=== PATIENT | male | born 1985 | race Caucasian/White ===

== ENCOUNTER 2019-01-19 16:25 | Inpatient (IN) | payer OTHER ==
[2019-01-19] MEDS ORDERED: Labetalol HCl 100 MG/20 ML VIAL SLOW IVP PRN (18:12)
[2019-01-19] MEDS ORDERED: hydrALAZINE 20 MG/ML VIAL SLOW IVP PRN (18:12)
[2019-01-19 19:03] LABS: #Lymphocytes 0.5 thou/uL (1.20-3.40); #Monocytes 0.4 thou/uL (0.11-0.59); #Neutrophils 14.7 thou/uL (1.40-6.50); %Lymphocytes 3.3 % (21.0-51.0); %Monocytes 2.8 % (0.0-10.0); %Neutrophils 93.9 % (42.0-75.0); Hemoglobin 14.4 g/dL (14.0-18.0); Mean Corpuscular HGB CONC 33.8 g/dL (32.0-36.0); Mean Corpuscular Hemoglobin 31.6 pg (27.0-31.0); Mean Corpuscular Volume 93.4 fL (78.0-98.0); Mean Platelet Volume 7.9 fL (7.4-10.4); Platelet Count 242 thou/uL (130-400); Red Blood Cell (RBC) Count 4.58 mill/uL (4.70-6.10); White Blood Cell (WBC) Count 15.7 thou/uL (4.8-10.8)
[2019-01-19 19:08] LABS: PTT 24.9 SEC (22.9-36.1); Prothrombin Time 13.4 SEC (12.0-14.7)
[2019-01-19 19:20] LABS: Anion Gap 14 mmol/L (10-20); BUN (Urea Nitrogen) 12 mg/dL (8.9-20.6); Calc. Creatinine Clearance 0 mL/min (70-130); Calcium 9.3 mg/dL (7.8-10.44); Carbon Dioxide 21 mmol/L (22-29); Chloride 108 mmol/L (98-107); Estimated GFR-MDRD Greater than 90; Glucose 135 mg/dL (70-105); Potassium 3.7 mmol/L (3.5-5.1); Sodium 139 mmol/L (136-145)
[2019-01-19] MEDS ORDERED: Aminocaproic Acid 5 GM in Sodium Chloride 0.9% 250 ML 250 ML IV SCH (19:30)
[2019-01-19] MEDS ORDERED: niCARdipine 25 MG in Sodium Chloride 0.9% 250 ML 250 ML IVPB SCH (19:30)
[2019-01-19] MEDS ORDERED: Fentanyl 100 MCG/2 ML VIAL ONE ×2 (19:46→21:05)
--- NOTE | 2019-01-19 20:11 | PDOC.FPRHP ---
- History of Present Illness Chief Complaint: headache History of Present Illness: CONSULT NOTE: 33 yo gentleman presents as a transfer from [facility] for a SAH. 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 He was admitted to [facility]. We were consulted for medical management. He has already recevied fentanyl and amicar, and was started on a cardene drip here. Additional hx obtained from who states she has talked to around 1215 on lunch break and he felt fine, and then at 1230 he called her back and was gasping for air and in severe pain from a sudden headache; reports that she thinks he then passed out on the phone and the called EMS to go to her house where he works from home. He was transferred to [facility] and found to have the findings above, then transferred here. He was complaining of a diffuse headache in the room with some nausea currently. ED Course: Fentanyl, cardene, amicar, tylenol - Allergies/Adverse Reactions Allergies Allergy/AdvReac Type Severity Reaction Status Date / Time No Known Allergies Allergy Unverified 01/19/19 19:01 - History PMHx: Migraine requiring ER meds x1 in [place] PSHx: none FHx: grandfather-cva, prostate cancer, PSP Social: denies smoking, alcohol, drug use - Review of Systems General: denies: fever/chills, weight/appetite/sleep changes, night sweats ENT: denies: nasal congestion, rhinorrhea Respiratory: denies: cough, congestion, shortness of breath Cardiovascular: denies: chest pain, palpitation, edema Gastrointestinal: reports: nausea, diarrhea, abdominal pain. denies: vomiting Skin: denies: rashes, lesions Musculoskeletal: denies: pain, tenderness Neurological: reports: syncope. denies: numbness Psychological: denies: anxiety, depression - Vital signs BP: 123/66 HR: 106 RR: 22 Tmax:98.3F Pox: 98% on RA Wt: 68kg - Physical Exam Constitutional: other (GCS 14, resting with eyes closed, but responsive to commands) HEENT: normocephalic and atraumatic, PERRLA, conjunctiva clear, no scleral icterus, grossly normal hearing, normal nasal mucosa, MMM, oropharynx clear Neck: supple, trachea midline, no JVD, no thyromegaly Chest: no-tender to palpation, no lesions Heart: normal S1/S2, no murmurs/rubs/gallops, pulses present, no edema, other ( mildy tachycardic) Lungs: CTAB, no respiratory distress, good air movement, no wheezing, no retractions Abdomen: soft, non-tender (hypoactive bowel sounds), no masses/distention Musculoskeletal: normal structure, normal tone, ROM grossly normal Neurological: no focal deficit, CN II-XII intact, normal sensation Skin: no rash/lesions, good turgor, capillary refill <2 seconds, no jaundice Heme/Lymphatic: no unusual bruising or bleeding, no purpura, no petechia, no LAD FMR H&P: Results - Labs Result Diagrams: 01/19/19 18:55 01/19/19 18:55 Lab results: WBC 15.7 thou/uL (4.8-10.8) H 01/19/19 18:55 Hgb 14.4 g/dL (14.0-18.0) 01/19/19 18:55 Hct 42.8 % (42.0-52.0) 01/19/19 18:55 MCV 93.4 fL (78.0-98.0) 01/19/19 18:55 Plt Count 242 thou/uL (130-400) 01/19/19 18:55 Neutrophils % 93.9 % (42.0-75.0) H 01/19/19 18:55 Sodium 139 mmol/L (136-145) 01/19/19 18:55 Potassium 3.7 mmol/L (3.5-5.1) 01/19/19 18:55 Chloride 108 mmol/L (98-107) H 01/19/19 18:55 Carbon Dioxide 21 mmol/L (22-29) L 01/19/19 18:55 BUN 12 mg/dL (8.9-20.6) 01/19/19 18:55 Creatinine 0.74 mg/dL (0.7-1.3) 01/19/19 18:55 Glucose 135 mg/dL (70-105) H 01/19/19 18:55 Calcium 9.3 mg/dL (7.8-10.44) 01/19/19 18:55 - Radiology Interpretation CT scan - head Status: report reviewed by me (right MCA bifurcation wide-neck 5mm aneurysm with small daughter aneurysm at its dome, gen ruptured and producing the moderate subarachnoid hemorrhage seen on the noncontrast C earlier on karolina same date. Moderate subarachnoid hemorrhage centered in the suprasellar cistern and extending peripherally.) FMR H&P: A/P - Problem List (1) Subarachnoid hemorrhage Current Visit: Yes Status: Acute Code(s): I60.9 - NONTRAUMATIC SUBARACHNOID HEMORRHAGE, UNSPECIFIED (2) See aneurysm Current Visit: Yes Status: Acute Code(s): I67.1 - CEREBRAL ANEURYSM, NONRUPTURED - Plan 33 yo gentleman with new onset headache, n/v admitted for a SAH 2/2 see aneurysm at the right MCA bifurcation. #Subarachnoid hemorrhage- Pt has already been admitted to [facility] and we were consulted by neurosurgery for medical management of bp. He has been admitted to ICU and has already been started on a cardine drip for bp management. WIll keep bp's controlled at <140 systolic Will control pain with morphine, tylenol prn HLandon Bahena MD, PGY-3 FMR H&P: Upper Level - Plan Date/Time: 01/19/192008 I, [], have evaluated this patient and agree with findings/plan as outlined by manager internship resident. Pertinent changes/additions are listed here.
[2019-01-19] MEDS: niMODipine 30 MG CAP PO SCH (22:36)
[2019-01-19] MEDS: Famotidine/PF 20 mg/2ml Vial SLOW IVP SCH (22:37)
[2019-01-19] MEDS: Acetaminophen 1,000 MG in Premix Bag 1 BAG IVPB PRN (22:38)
[2019-01-19] MEDS: Aminocaproic Acid 5 GM in Sodium Chloride 0.9% 250 ML 250 ML IV SCH ×2 (22:41→22:56)
[2019-01-19] MEDS: Sodium Chloride 0.9% 1,000 ML IV SCH (23:00)
[2019-01-19] MEDS: Ondansetron PF 4 MG/2 ML Vial IVP PRN (23:24)
[2019-01-19 23:33] VITALS: BMI 21.5
[2019-01-20] MEDS: Morphine 2 MG/ML SYRINGE SLOW IVP PRN ×3 (00:11→21:15)
[2019-01-20] MEDS: niCARdipine 50 MG in Sodium Chloride 0.9% 250 ML 230 ML IVPB SCH ×2 (01:09→09:48)
[2019-01-20] MEDS: niMODipine 30 MG CAP PO SCH ×6 (01:14→21:13)
--- NOTE | 2019-01-20 02:18 | CON ---
DATE OF CONSULTATION: HISTORY OF PRESENT ILLNESS: The patient is a 33-year-old male, who is otherwise healthy, who presented to [facility] following an acute onset of thunderclap headache just prior to arrival. The patient reports this was associated with an episode of syncope, and nausea and vomiting at that time. EMS was called, brought the patient to the emergency department for further evaluation. On arrival, CT head was done, which showed diffuse subarachnoid hemorrhage. CTA was also ordered, which was notable for a right-sided MCA aneurysm at the bifurcation just approximately 5 mm, wide neck in appearance and associated with a small daughter sac. I discussed the case with Dr. Naranjo and he recommended transfer to [facility] for further management and coiling capabilities. The patient was started on Amicar as well as blood pressure control. He presented to the emergency room at [facility], where his neurologic exam has remained stable. I presented shortly after that to the bedside for further evaluation and management. PAST MEDICAL HISTORY: The patient is otherwise healthy. Denies any prior medical problems. PAST SURGICAL HISTORY: Denies any prior surgeries. The patient does not smoke, drink, or use any drugs. SOCIAL HISTORY: He is . ALLERGIES: NO KNOWN DRUG ALLERGIES. REVIEW OF SYSTEMS: Per HPI. PHYSICAL EXAMINATION: VITAL SIGNS: BP is 130/66, respiration rate is 20. The patient is 100% on room air, pulse is 100. Pain scale currently 9/10. HEENT: Head; normocephalic and atraumatic. Eyes; pupils are small, equal, sluggish reactivity. ENT; oral mucosa is pink, intact, and moist. He has normal voice. NECK: Slight nuchal rigidity is noted. RESPIRATORY: Symmetric chest expansion. No evidence of dyspnea. CARDIOVASCULAR: Regular rate and rhythm. MUSCULOSKELETAL: Free active range of motion. No focal motor weakness is noted. NEUROLOGIC: The patient is drowsy, but otherwise awakens easily to voice. He is oriented to person, place, and time. He has normal fluent speech. No focal neurologic deficits are appreciated. ASSESSMENT AND PLAN: This is a 33-year-old otherwise healthy male, who was found to have acute subarachnoid hemorrhage with a right 5 mm MCA bifurcation aneurysm. He was transferred to [facility] for further management. We will plan to admit to the ICU and monitor closely with q.1 neuro checks. Head of the bed should be elevated to 30 degrees. We will continue current Amicar as well as start the patient on Nimotop and continue Cardene drip with systolic blood pressure goal of less than 140. I have discussed this case with Dr. Naranjo and he also discussed with for the possibility of possible coiling of this aneurysm. Depending on this, we will coordinate further plan. I have also consulted ICU diesel dinkey engineer as well as the Hospitalist Service for assistance in management of this patient. Job ID: [id number]
[2019-01-20] MEDS: Aminocaproic Acid 5 GM in Sodium Chloride 0.9% 250 ML 250 ML IV SCH ×2 (03:55→09:48)
[2019-01-20] MEDS: Acetaminophen 1,000 MG in Premix Bag 1 BAG IVPB PRN (05:34)
--- NOTE | 2019-01-20 06:46 | CT ---
CT HEAD NONCONTRAST: Date: 01/20/19 INDICATION: Subarachnoid hemorrhage, follow-up. No prior comparisons are currently available. FINDINGS: There is bilateral subarachnoid hemorrhage, more pronounced on the right, with evidence of intraventr icular extension, bilaterally, resulting in mild ventriculomegaly. Subarachnoid hemorrhage involves t he bilateral sylvian fissures, the right frontoparietal sulci, and insinuating along the midline stru ctures. There is a focal rounded hyperdensity adjacent to the interpeduncular cistern, approximately 9 mm. IMPRESSION: Diffuse bilateral subarachnoid hemorrhage with intraventricular hemorrhagic extension producing mild ventriculomegaly. POS: BRIDGER
--- NOTE | 2019-01-20 07:33 | CON ---
DATE OF CONSULTATION: 01/20/2019 REASON FOR CONSULTATION: Subarachnoid hemorrhage. HISTORY OF PRESENT ILLNESS: The patient is a 33-year-old male, who presented to an outside ER with thunderclap headache. He had a non-contrast CT performed that showed diffuse subarachnoid hemorrhage. Subsequent to that, he had a CT angiogram performed, which suggested a right MCA bifurcation region aneurysm. He was transferred to [facility] for further evaluation and more definitive management. He has been admitted in the ICU overnight, he has been stable. This morning, he is sleeping, reports headache. I discussed with his father as well as the patient, his diagnosis, his imaging, and the plan of procedure today, which will be that of conventional angiography with potential for endovascular coiling of any identified aneurysm or aneurysms. I reviewed with him in detail the risks of the procedure, which certainly include re-rupture of the aneurysm as well as thromboembolic event. I answered all of their questions, and they provided informed consent. The plan will be to bring him to the laborer [facility] later this morning or early afternoon for the above-mentioned procedure. Job ID: [id number]
[2019-01-20] MEDS ORDERED: Heparin 10,000 UNITS/1 ML VIAL ONE (08:42)
[2019-01-20] MEDS: Famotidine/PF 20 mg/2ml Vial SLOW IVP SCH ×2 (08:48→21:14)
[2019-01-20] MEDS: Ondansetron PF 4 MG/2 ML Vial IVP PRN ×2 (08:52→21:18)
--- NOTE | 2019-01-20 08:54 | PDOC.FM ---
- Subjective Subjective: Ian was resting in bed this morning. Family member present noted that many people have come in the room this morning. Patient did not express any complaints to me. Plan for procedure today at noon. - Objective Vital Signs & Weight: Vital Signs (12 hours) Temp Pulse BP Pulse Ox 01/20/19 04:00 97.9 F 01/20/19 01:00 97.7 F 01/20/19 00:17 97 01/19/19 23:28 97 141/65 H 01/19/19 22:21 98.3 F 01/19/19 21:00 98.3 F Weight Weight 70 kg Most Recent Monitor Data Heart Rate from ECG 74 NIBP 122/65 NIBP BP-Mean 84 Respiration from ECG 19 SpO2 98 I&O: 01/19/19 01/20/19 01/21/19 06:59 06:59 06:59 Intake Total 1841 Output Total 925 Balance 916 Result Diagrams: 01/19/19 18:55 01/19/19 18:55 Phys Exam - Physical Examination Constitutional: NAD Respiratory: no wheezing, clear to auscultation bilateral Cardiovascular: RRR, no significant murmur Gastrointestinal: soft, non-tender Musculoskeletal: no edema Psychiatric: normal affect Skin: normal turgor Dx/Plan (1) Rayo aneurysm Code(s): I67.1 - CEREBRAL ANEURYSM, NONRUPTURED Status: Acute (2) Subarachnoid hemorrhage Code(s): I60.9 - NONTRAUMATIC SUBARACHNOID HEMORRHAGE, UNSPECIFIED Status: Acute - Plan Plan: 33 yo gentleman with new onset headache, n/v admitted for a SAH 2/2 rayo aneurysm at the right MCA bifurcation. #Subarachnoid hemorrhage -Pt admitted to neurosurgery and we are consulted for medical management of bp. -Continue cardene drip, currently at 7, with goal BP's <140 systolic -Will control pain with morphine, tylenol prn - neurosurgery has plan for procedure today, will continue to follow Addendum - Attending - Attending Attestation Date/Time: 01/20/19 1033 I personally evaluated the patient and discussed the management with Dr. Forrest I agree with the History, Examination, Assessment and Plan documented above with any addition or exceptions noted below - Patient c/o continued TURNER. Afebrile VSS. A/P: 1) Subarachnoid hemorrhage secondary to Rayo aneurysm - plans as per neurosurgery for intervention; continue cardene for BP.
--- NOTE | 2019-01-20 08:54 | CON ---
DATE OF CONSULTATION: HISTORY OF PRESENT ILLNESS: Ian English is a 33-year-old gentleman who presented with severe headache. Presented to [facility] where non CT head showed a subarachnoid hemorrhage. Was transferred here for ongoing evaluation. Dr. Torres, the neurosurgeon saw him yesterday and imaging studies shows he has a right MCA aneurysm. Father at the bedside who states that on a constant diet. Did not smoke any tobacco, but apparently I see in the history he rarely smokes some marijuana from time to time. No history of any alcohol abuse. PAST MEDICAL HISTORY: Unremarkable for any major medical problems. No history of diabetes or hypertension. CHRONIC MEDICATIONS: None. PAST SURGICAL HISTORY: None. SOCIAL HISTORY: He apparently designs . REVIEW OF SYSTEMS: Otherwise negative. PHYSICAL EXAMINATION: GENERAL: He is awake, alert, responsive, appropriate except for headache. Denies any other discomfort. VITAL SIGNS: Blood pressure 122/65, pulse 74, saturations are 98% on room air, respiratory rate 19. CHEST: No wheezing or crackles. CARDIAC: Normal S1, S2. No gallop. ABDOMEN: No masses. DIAGNOSTIC STUDIES: CT brain shows diffuse subarachnoid hemorrhage. LABORATORY DATA: Otherwise unremarkable. White count 08018. Chemistry profile unremarkable. Blood sugar 130. IMPRESSION: Subarachnoid hemorrhage secondary to aneurysm. PLAN: The patient to go for intervention today. Pulmonary will follow while in the ICU. Consultation note, 70 minutes, 50% direct patient care. Job ID: [id number]
--- NOTE | 2019-01-20 10:15 | PRG ---
DATE OF SERVICE: 01/20/2019 The patient was seen and examined. I agree with Sade Cain's evaluation on 01/19/2019. The patient is a 33-year-old man, otherwise healthy with spontaneous thunderclap headache yesterday. Currently, he has his eyes closed, but does arouse and interact and seems oriented. He complains of headache. CT scan revealed subarachnoid hemorrhage diffusely with predominance in the right sylvian fissure. CT angiogram done at [facility] suggested a sausage like right MCA bifurcation aneurysm. IMPRESSION AND PLAN: Aneurysmal subarachnoid hemorrhage. The definitive anatomy of the right middle cerebral artery aneurysm remains to be defined. I have discussed the case with Dr. Torres, who plans an angiography today with possible coiling if anatomically favorable. I discussed with the patient and his father. Job ID: [id number]
[2019-01-20] MEDS ORDERED: Fentanyl 100 MCG/2 ML VIAL ONE (12:47)
[2019-01-20] MEDS ORDERED: Ondansetron PF 4 MG/2 ML Vial ONE (13:08)
[2019-01-20] MEDS ORDERED: Lidocaine 2% PF 5 ML VIAL ONE (13:08)
[2019-01-20] MEDS ORDERED: PROPOFOL 200 MG/20 ML VIAL ONE (13:08)
[2019-01-20] MEDS ORDERED: Glycopyrrolate 0.2 MG/ML 5 ML SYRINGE ONE (13:08)
[2019-01-20] MEDS ORDERED: Rocuronium Bromide 10 MG/ML (10ML VIAL) ONE (13:08)
[2019-01-20] MEDS ORDERED: Dexamethasone 20 MG/5 ML VIAL ONE (13:08)
[2019-01-20] MEDS: Sodium Chloride 0.9% 1,000 ML IV SCH ×2 (17:06→22:44)
[2019-01-21] MEDS: niMODipine 30 MG CAP PO SCH ×6 (01:39→21:47)
[2019-01-21] MEDS: Morphine 2 MG/ML SYRINGE SLOW IVP PRN (01:41)
[2019-01-21] MEDS: Ondansetron PF 4 MG/2 ML Vial IVP PRN ×4 (02:58→17:27)
--- NOTE | 2019-01-21 06:32 | PDOC.FM ---
- Subjective Subjective: Ian reported he was in pain this morning and just received morphine. He has been urinating well. Has not had BM since prior to hospitalization and is not passing gas. - Objective Vital Signs & Weight: Vital Signs (12 hours) Temp Pulse Ox 01/21/19 04:00 98.4 F 01/21/19 00:00 98.9 F 01/20/19 20:00 98.8 F 98 Weight Weight 70 kg Most Recent Monitor Data Heart Rate from ECG 60 NIBP 124/74 NIBP BP-Mean 90 Respiration from ECG 10 SpO2 98 I&O: 01/19/19 01/20/19 01/21/19 06:59 06:59 06:59 Intake Total 1841 4109 Output Total 925 4130 Balance 916 -21 Result Diagrams: 01/19/19 18:55 01/19/19 18:55 Phys Exam - Physical Examination Constitutional: NAD Respiratory: clear to auscultation bilateral Cardiovascular: RRR, no significant murmur Gastrointestinal: soft, no distention, positive bowel sounds Musculoskeletal: no edema Psychiatric: normal affect Skin: normal turgor, cap refill <2 seconds Dx/Plan (1) Rayo aneurysm Code(s): I67.1 - CEREBRAL ANEURYSM, NONRUPTURED Status: Acute (2) Subarachnoid hemorrhage Code(s): I60.9 - NONTRAUMATIC SUBARACHNOID HEMORRHAGE, UNSPECIFIED Status: Acute - Plan Plan: 33 yo gentleman with new onset headache, n/v admitted for a SAH 2/2 rayo aneurysm at the right MCA bifurcation. #Subarachnoid hemorrhage s/p coiling POD #1 -Pt admitted to neurosurgery and we are consulted for medical management -Cardene drip stopped 01/20. On nimodipine. Goal BP's <140 systolic -Pain control with morphine, norco prn -add prn stool softeners prn, discussed with patient Addendum - Attending - Attending Attestation Date/Time: 01/21/19 1033 I personally evaluated the patient and discussed the management with Dr. Forrest I agree with the History, Examination, Assessment and Plan documented above with any addition or exceptions noted below - Patietn c/o TURNER. Tolerating clears. Afebrile VSS. A/P: 1) SA hemorrhage secondary to Rayo aneurysm- s/p coiling- plans as per neurosurgery.
--- NOTE | 2019-01-21 07:57 | PRG ---
DATE OF SERVICE: 01/21/2019 SUBJECTIVE: Ian English this morning, is awake, alert, and responsive. Still got a headache, still nauseated. OBJECTIVE: VITAL SIGNS: Temperature 97, blood pressure 130/78, saturations . CHEST: No wheezing or crackles. CARDIAC: Normal S1, S2. No gallop. ABDOMEN: No masses. ASSESSMENT: Status post intraventricular hemorrhage secondary to aneurysm status post coiling. PLAN: The patient appears to be improved and stable. Pain relief, supportive care. We will follow while in the ICU. Job ID: [id number]
[2019-01-21] MEDS: HYDROcodone/Acetaminophen 5/325 mg Tablet PO PRN ×4 (08:13→20:31)
[2019-01-21] MEDS: Famotidine/PF 20 mg/2ml Vial SLOW IVP SCH (08:14)
[2019-01-21] MEDS: Sodium Chloride 0.9% 1,000 ML IV SCH ×2 (10:21→20:33)
--- NOTE | 2019-01-21 15:46 | PRG ---
DATE OF SERVICE: 01/21/2019 SUBJECTIVE: The patient is alert and appropriate. He is having nausea at the moment. He has been working with Physical Therapy. He underwent successful coiling of his MCA aneurysm yesterday. IMPRESSION AND PLAN: We will stop his Amicar and allow his blood pressure to rise to a range between 120 and 180. We will continue with aggressive IV hydration and check a basic metabolic panel tomorrow. We will continue with ICU care for now. Then, I did discuss with the patient and his [id number], the likelihood of prolonged hospital stay to survey for complications of subarachnoid hemorrhage. Job ID: [id number]
[2019-01-21] MEDS: Scopolamine 1.5 mg/72 hour Patch TOP SCH (17:26)
[2019-01-21] MEDS: Famotidine 20 MG TAB PO SCH (20:28)
[2019-01-22] MEDS: Ondansetron PF 4 MG/2 ML Vial IVP PRN ×4 (00:07→21:12)
[2019-01-22] MEDS: niMODipine 30 MG CAP PO SCH ×6 (01:13→20:31)
[2019-01-22] MEDS: HYDROcodone/Acetaminophen 5/325 mg Tablet PO PRN ×4 (02:38→21:10)
[2019-01-22 05:06] LABS: Anion Gap 11 mmol/L (10-20); BUN (Urea Nitrogen) 11 mg/dL (8.9-20.6); Calc. Creatinine Clearance 155 mL/min (70-130); Calcium 8.5 mg/dL (7.8-10.44); Carbon Dioxide 23 mmol/L (22-29); Chloride 108 mmol/L (98-107); Estimated GFR-MDRD Greater than 90; Glucose 97 mg/dL (70-105); Potassium 3.6 mmol/L (3.5-5.1); Sodium 138 mmol/L (136-145)
--- NOTE | 2019-01-22 06:02 | PRG ---
DATE OF SERVICE: SUBJECTIVE: He is better this morning, less headache. OBJECTIVE: VITAL SIGNS: Sats are 98% on room air, pulse 53, blood pressure 102/71, respiratory rate 18. CHEST: Decreased breath sounds. No wheezing. CARDIAC: Normal S1, S2. No gallops. ABDOMEN: No masses. LABORATORY DATA: Lytes are normal. IMPRESSION: Status post subarachnoid hemorrhage secondary to aneurysm, status post coiling. Headache, improved. PLAN: Disposition; as per Neurosurgery. We will follow while in the ICU. Job ID: [id number]
--- NOTE | 2019-01-22 06:22 | PDOC.FM ---
- Subjective Subjective: Patient was resting in bed. reports patient just got done with PT and feels bad with headache now. - Objective Vital Signs & Weight: Vital Signs (12 hours) Temp Pulse Ox 01/22/19 04:00 98.2 F 01/22/19 00:00 98.6 F 01/21/19 20:00 98.8 F 99 Weight Weight 70 kg Most Recent Monitor Data Heart Rate from ECG 47 NIBP 106/57 NIBP BP-Mean 73 Respiration from ECG 14 SpO2 98 I&O: 01/20/19 01/21/19 01/22/19 06:59 06:59 06:59 Intake Total 1841 4109 3685 Output Total 925 4130 3100 Balance 916 -21 585 Result Diagrams: 01/19/19 18:55 01/22/19 04:16 Phys Exam - Physical Examination sleeping in bed no respiratory distress Cardiovascular: RRR Gastrointestinal: soft Musculoskeletal: no edema Neurological: moves all 4 limbs Skin: normal turgor Dx/Plan (1) See aneurysm Code(s): I67.1 - CEREBRAL ANEURYSM, NONRUPTURED Status: Acute (2) Subarachnoid hemorrhage Code(s): I60.9 - NONTRAUMATIC SUBARACHNOID HEMORRHAGE, UNSPECIFIED Status: Acute - Plan Plan: 33 yo gentleman with new onset headache, n/v admitted for a SAH, MCA aneurysm. #Subarachnoid hemorrhage s/p coiling of MCA aneurysm POD #2 -Pt admitted to neurosurgery and we are consulted for medical management -Cardene drip stopped 01/20. On nimodipine, though has been held for BP systolic [id number]. Per neuro, goal BP's 120-180 systolic -Pain control with morphine, norco prn -stool softeners prn Addendum - Attending - Attending Attestation Date/Time: 01/22/19 1027 I personally evaluated the patient and discussed the management with Dr. Forrest I agree with the History, Examination, Assessment and Plan documented above with any addition or exceptions noted below - Patient resting. Just finished PT and now has TURNER. Afebrile VSS. A/P: 1) SA bleed secondary to See aneurysm s/p coiling- continue current treatment as per neurosurgery
[2019-01-22] MEDS: Famotidine 20 MG TAB PO SCH ×2 (09:07→20:31)
--- NOTE | 2019-01-22 09:35 | PRG ---
DATE OF SERVICE: 01/22/2019 SUBJECTIVE: The patient is a 33-year-old male found to have subarachnoid hemorrhage with right MCA bifurcation aneurysm, who is postop day #2, status post coiling. He remains in the ICU. His headaches and nausea are improving. He is tolerating a regular diet. He has been up, ambulating short distance back and forth to the bathroom. All of his hypertensive medications other than Nimotop have been discontinued. His blood pressure has been running with systolic around 120. He was unable to get 1 episode with Nimotop secondary to systolic blood pressure less than 120. His BMP; sodium looks normal this morning. Fluids remain running 75 an hour. OBJECTIVE: GENERAL: On exam, the patient is awake, alert, in no acute distress. HEENT: Pupils are equal and reactive. His extraocular movements are intact. NEUROLOGIC: No focal neurologic deficits are appreciated. PLAN: We will continue to monitor closely in the ICU as he is high risk for vasospasm. I anticipate transfer to the floor soon. Job ID: [id number]
[2019-01-22] MEDS: Morphine 2 MG/ML SYRINGE SLOW IVP PRN (10:05)
[2019-01-22] MEDS: Sodium Chloride 0.9% 1,000 ML IV SCH (11:08)
[2019-01-23] MEDS: Sodium Chloride 0.9% 1,000 ML IV SCH ×2 (00:38→12:24)
[2019-01-23] MEDS: niMODipine 30 MG CAP PO SCH ×5 (01:30→17:32)
--- NOTE | 2019-01-23 06:41 | PDOC.FM ---
- Subjective Subjective: Patient was sleeping comfortably in bed. He denied having any complaints or needs this morning. - Objective Vital Signs & Weight: Vital Signs (12 hours) Temp Pulse Ox 01/22/19 20:00 98.4 F 98 Weight Weight 72.7 kg Most Recent Monitor Data Heart Rate from ECG 43 NIBP 111/67 NIBP BP-Mean 81 Respiration from ECG 10 SpO2 99 I&O: 01/21/19 01/22/19 01/23/19 06:59 06:59 06:59 Intake Total 4109 3685 2016 Output Total 4131 3100 4250 Balance -21 072 -6544 Result Diagrams: 01/19/19 18:55 01/22/19 04:16 Phys Exam - Physical Examination Constitutional: NAD Respiratory: no wheezing, clear to auscultation bilateral Cardiovascular: RRR, no significant murmur Gastrointestinal: soft, non-tender Musculoskeletal: no edema, pulses present Psychiatric: normal affect Skin: normal turgor Dx/Plan (1) See aneurysm Code(s): I67.1 - CEREBRAL ANEURYSM, NONRUPTURED Status: Acute (2) Subarachnoid hemorrhage Code(s): I60.9 - NONTRAUMATIC SUBARACHNOID HEMORRHAGE, UNSPECIFIED Status: Acute - Plan Plan: 33 yo gentleman with new onset headache, n/v admitted for a SAH, MCA aneurysm. #Subarachnoid hemorrhage s/p coiling of MCA aneurysm POD #3 -Pt admitted to neurosurgery and we are consulted for medical management -Cardene drip stopped 01/20. On nimodipine, though has been held for BP systolic [id number]. Per neuro, goal BP's 120-180 systolic -Pain control with morphine, norco prn -stool softeners prn Addendum - Attending - Attending Attestation Date/Time: 01/23/19 2773 I personally evaluated the patient and discussed the management with Dr. Forrest. I agree with the History, Examination, Assessment and Plan documented above with any addition or exceptions noted below. Patient overall stable. Primary mgmt by NSGY. We are monitoring BP. Below goal currently and CCB being held. Will see if we can decrease dose as any amount of CCB would be an improvement and help prevent vasospasm.
[2019-01-23] MEDS: Famotidine 20 MG TAB PO SCH ×2 (07:47→21:31)
[2019-01-23] MEDS: HYDROcodone/Acetaminophen 5/325 mg Tablet PO PRN ×4 (07:47→21:32)
[2019-01-23] MEDS: Ondansetron PF 4 MG/2 ML Vial IVP PRN (07:48)
[2019-01-23 09:01] LABS: Anion Gap 13 mmol/L (10-20); BUN (Urea Nitrogen) 8 mg/dL (8.9-20.6); Calc. Creatinine Clearance 159 mL/min (70-130); Calcium 8.7 mg/dL (7.8-10.44); Carbon Dioxide 21 mmol/L (22-29); Chloride 109 mmol/L (98-107); Estimated GFR-MDRD Greater than 90; Glucose 91 mg/dL (70-105); Potassium 3.7 mmol/L (3.5-5.1); Sodium 139 mmol/L (136-145)
--- NOTE | 2019-01-23 09:27 | PRG ---
DATE OF SERVICE: 01/23/2019 SUBJECTIVE: The patient is a 33-year-old male three days status post coiling of a right MCA bifurcation aneurysm. He has been monitored closely in the ICU and has remained neurologically intact. He has had some issues with headache and nausea, but this appeared to be improving in time. He has remained on IV fluids and has had no issues with his electrolytes. OBJECTIVE: GENERAL: On exam this morning, the patient is sitting up in the chair. He is awake, alert, in no acute distress. NEUROLOGIC: He has free active range of motion of all extremities. No focal motor weakness. His pupils are equal and reactive. His extraocular movements are intact. ASSESSMENT AND PLAN: We will plan to transition the patient to the floor today. The patient's systolic blood pressure goal should remain 120 to 180 systolic. We will continue his IV fluids. We will continue to mobilize and work on pain control and nausea control. Job ID: [id number]
[2019-01-24] MEDS: HYDROcodone/Acetaminophen 5/325 mg Tablet PO PRN ×5 (03:34→20:49)
[2019-01-24] MEDS: Sodium Chloride 0.9% 1,000 ML IV SCH ×2 (03:35→17:50)
[2019-01-24] MEDS: niMODipine 30 MG CAP PO SCH ×6 (04:34→17:44)
--- NOTE | 2019-01-24 06:59 | PDOC.FM ---
- Subjective Subjective: Ian was resting well in bed. No acute events overnight. - Objective Vital Signs & Weight: Vital Signs (12 hours) Temp Pulse Resp BP Pulse Ox 01/24/19 04:00 98.7 F 48 L 16 114/75 100 01/24/19 00:00 98.5 F 55 L 16 105/67 97 01/23/19 20:25 99 01/23/19 20:00 98.7 F 58 L 16 115/77 99 Weight Weight 72.7 kg Most Recent Monitor Data Heart Rate from ECG 59 NIBP 116/73 NIBP BP-Mean 87 Respiration from ECG 14 SpO2 100 I&O: 01/22/19 01/23/19 01/24/19 06:59 06:59 06:59 Intake Total 3686 2016 2236 Output Total 310 7013 1200 Balance 585 -4253 1037 Result Diagrams: 01/19/19 18:55 01/23/19 08:23 Phys Exam - Physical Examination Constitutional: NAD Respiratory: clear to auscultation bilateral Cardiovascular: RRR, no significant murmur Gastrointestinal: no distention, positive bowel sounds Musculoskeletal: no edema Skin: normal turgor Dx/Plan (1) See aneurysm Code(s): I67.1 - CEREBRAL ANEURYSM, NONRUPTURED Status: Acute (2) Subarachnoid hemorrhage Code(s): I60.9 - NONTRAUMATIC SUBARACHNOID HEMORRHAGE, UNSPECIFIED Status: Acute - Plan Plan: 33 yo gentleman with new onset headache, n/v admitted for a SAH, MCA aneurysm. #Subarachnoid hemorrhage s/p coiling of MCA aneurysm POD #4 -Pt admitted to neurosurgery and we are consulted for medical management -Cardene drip stopped 01/20. On nimodipine, though has been held for BP systolic [id number]. Per neuro, goal BP's 120-180 systolic -Pain control with morphine, norco prn -stool softeners prn Addendum - Attending - Attending Attestation Date/Time: 01/24/19 0713 I personally evaluated the patient and discussed the management with Dr. Forrest. I agree with the History, Examination, Assessment and Plan documented above with any addition or exceptions noted below. Patient admitted by NSGY for SAH. Doing well overall. Continue BP mgmt with CCB. At goal currently. Dispo per primary team.
[2019-01-24 08:13] LABS: Anion Gap 10 mmol/L (10-20); BUN (Urea Nitrogen) 8 mg/dL (8.9-20.6); Calc. Creatinine Clearance 157 mL/min (70-130); Calcium 8.4 mg/dL (7.8-10.44); Carbon Dioxide 26 mmol/L (22-29); Chloride 109 mmol/L (98-107); Estimated GFR-MDRD Greater than 90; Glucose 91 mg/dL (70-105); Potassium 3.6 mmol/L (3.5-5.1); Sodium 141 mmol/L (136-145)
[2019-01-24] MEDS: Famotidine 20 MG TAB PO SCH ×2 (08:35→20:50)
--- NOTE | 2019-01-24 09:24 | PRG ---
DATE OF SERVICE: 01/24/2019 The patient is a 33-year-old male, status post coiling of right MCA aneurysm. Yesterday, he was transferred from the ICU to the Stroke Unit. Since that time , he reports he has been doing well and only has mild intermittent headaches, that are well controlled with [place]. He has been tolerating a regular diet, and has been up ambulating with assistance. Exam AOX, non focal We will continue to monitor closely on the Stroke floor. He continues to receive Nimotop, as his blood pressure tolerates and we will continue his IV fluids. Will check CTA and non contrast CT of the brain tomorrow to reassess. Job ID: [id number] MTDD
[2019-01-24] MEDS: Ondansetron PF 4 MG/2 ML Vial IVP PRN ×2 (10:12→20:48)
--- NOTE | 2019-01-24 13:02 | PRG ---
DATE OF SERVICE: 01/24/2019 The patient was seen and examined. I agree with Sade Cain's evaluation. He is doing reasonably well without focal deficit. He is alert and interactive, although he prefers his eyes closed due to significant headache. His oral intake has been reasonable. His sodium remains normal. We will continue with IV fluids. Tomorrow, we will get a CT and CT angiogram to survey for hydrocephalus with vasospasm and depending on the results of these, we will decide on ongoing IV fluid management as well as disposition planning for possible discharge later in the week. I discussed in detail with the patient and his mother. Job ID: [id number]
[2019-01-24] MEDS: Docusate 100 MG CAP PO PRN (14:38)
[2019-01-24] MEDS: Scopolamine 1.5 mg/72 hour Patch TOP SCH (17:44)
[2019-01-24] MEDS: Polyethylene Glycol 3350 17 GM Packet PO PRN (20:50)
[2019-01-25] MEDS: niMODipine 30 MG CAP PO SCH ×7 (00:03→22:23)
[2019-01-25] MEDS: HYDROcodone/Acetaminophen 5/325 mg Tablet PO PRN ×5 (05:40→22:22)
[2019-01-25] MEDS: Sodium Chloride 0.9% 1,000 ML IV SCH (05:43)
--- NOTE | 2019-01-25 08:12 | PDOC.FM ---
- Subjective Subjective: Pt reports headache this AM, given [place] about an hour before exam. Denies CP, SOB, nausea/vomiting. - Objective Vital Signs & Weight: Vital Signs (12 hours) Temp Pulse Resp BP Pulse Ox 01/25/19 07:43 98.2 F 57 L 16 123/71 97 01/25/19 03:59 98.6 F 54 L 16 129/74 98 01/25/19 00:00 98.3 F 53 L 16 116/74 97 Weight Weight 71.486 kg Most Recent Monitor Data Heart Rate from ECG 59 NIBP 116/73 NIBP BP-Mean 87 Respiration from ECG 14 SpO2 100 I&O: 01/24/19 01/25/19 01/26/19 06:59 06:59 06:59 Intake Total 2237 2400 Output Total 1200 1040 Balance 1037 1360 Result Diagrams: 01/19/19 18:55 01/25/19 08:21 Phys Exam - Physical Examination Constitutional: NAD HEENT: PERRLA, moist MMs Neck: no nodes, supple Respiratory: no wheezing, clear to auscultation bilateral Cardiovascular: RRR, no significant murmur Gastrointestinal: soft, non-tender Musculoskeletal: no edema, pulses present Neurological: non-focal, moves all 4 limbs strength 5/5 BL upper and lower extremities Psychiatric: normal affect Skin: no rash, normal turgor Dx/Plan (1) See aneurysm Code(s): I67.1 - CEREBRAL ANEURYSM, NONRUPTURED Status: Acute (2) Subarachnoid hemorrhage Code(s): I60.9 - NONTRAUMATIC SUBARACHNOID HEMORRHAGE, UNSPECIFIED Status: Acute - Plan Plan: 33 yo gentleman with new onset headache, n/v admitted for a SAH, MCA aneurysm. #Subarachnoid hemorrhage s/p coiling of MCA aneurysm POD #5 -Pt admitted to neurosurgery and we are consulted for medical management -Cardene drip stopped 01/20. Transitioned ICU-> stroke floor 01/23/ On nimodipine, though has been held for BP systolic in 100s. Per neuro, goal BP's 120-180 systolic -Blood pressures stable, 100s - 120s systolic. -Per Neuro, CT and CT angio today to evaluate for hydrocephalus/vasospasm -Pain control with norco prn -stool softeners prn Addendum - Attending - Attending Attestation Date/Time: 01/25/19 1211 I personally evaluated the patient and discussed the management with Dr. Danielson. I agree with the History, Examination, Assessment and Plan documented above with any addition or exceptions noted below. The patient will have repeat CT scan today. BLood pressures are well controlled. SAH mgmt per neurosurgery.
[2019-01-25] MEDS: Famotidine 20 MG TAB PO SCH ×2 (08:23→22:23)
--- NOTE | 2019-01-25 08:35 | PRG ---
DATE OF SERVICE: 01/25/2019 SUBJECTIVE: No overnight events. The patient is resting flat on my arrival. His eyes are closed and he is reporting significant headache this morning. He has just received [place]. His sodium has remained normal on prior labs and we have continued his IV fluids. CT and CTA head show no evidence of hydrocephalus or vasospasm. OBJECTIVE: NEUROLOGIC: On exam this morning, his eyes are closed, but he is otherwise awake, alert, and oriented x3. No focal neurologic deficits are appreciated. ASSESSMENT AND PLAN: Will dc IV fluids and continue mobilize and advance his diet. Anticpate home vs rehab later this week. Job ID: [id number] MTDD
[2019-01-25 08:49] LABS: Anion Gap 10 mmol/L (10-20); BUN (Urea Nitrogen) 8 mg/dL (8.9-20.6); Calc. Creatinine Clearance 138 mL/min (70-130); Calcium 8.8 mg/dL (7.8-10.44); Carbon Dioxide 26 mmol/L (22-29); Chloride 107 mmol/L (98-107); Estimated GFR-MDRD Greater than 90; Glucose 94 mg/dL (70-105); Potassium 3.9 mmol/L (3.5-5.1); Sodium 139 mmol/L (136-145)
[2019-01-25] MEDS: Ondansetron PF 4 MG/2 ML Vial IVP PRN ×2 (10:05→22:21)
--- NOTE | 2019-01-25 10:10 | CT ---
CT HEAD WITH AND WITHOUT CONTRAST: CT ANGIOGRAM OF [place] OF BOUCHER: HISTORY: Aneurysm. Follow-up exam. COMPARISON: Head CT without contrast from 01/20/2019. TECHNIQUE: CT angiogram of the head is performed in the axial plane. Three-dimensional reformatted im ages are submitted for interpretation FINDINGS: CT HEAD WITHOUT CONTRAST: Small amounts of subarachnoid hemorrhage in posterior frontal and parietal sulci, near the vertex, are redemonstrated. Small amount of intraventricular hemorrhage. No new areas of hemorrhage. Beam attenuation artifact from a colon mass in the right MCA trifurcation. Int act calvarium. Adequate aeration of the sinuses and mastoid air cells. CT HEAD WITH CONTRAST: Cortical danielson-white matter differentiation is preserved. No pathologic enhan cement of the brain parenchyma. CT ANGIOGRAM: The distal cervical and intracranial internal carotid arteries have appropriate enhanc ement and luminal diameter. Anterior circulation: There is a coil mass at the terminus of the right MCA artery. No evidence of aneurysm in the anterior circulation. Symmetric enhancement and luminal diameter of the A1 and M1 segments. Symmetric enhancement and luminal diameter of the proximal MCA branches and proximal A2 se gments. At the level of the coil mass, no evidence of a residual aneurysm. Evaluation is limited from beam attenuation artifact. Small aneurysm could easily obscure. Conventional angiography can b e performed. Posterior circulation: Bilateral PICA origins have appropriate enhancement and luminal diameter. B oth vertebral arteries supply a normal appearing basilar artery. The left and right P1 segments have appropriate enhancement and luminal diameter. No evidence of aneurysm in the posterior circulat ion. IMPRESSION: 1. Coil mass in the right middle cerebral artery trifurcation. Associated beam attenuation artifact . No evidence of a residual aneurysm. Limited evaluation due to beam attenuation artifact. Conventional angiography if clinically warranted. 2. Interval decrease in the amount of intraventricular and subarachnoid hemorrhage. Transcribed Date/Time: 01/25/2019 10:35 AM
[2019-01-25] MEDS: Polyethylene Glycol 3350 17 GM Packet PO PRN (22:22)
[2019-01-25] MEDS: Docusate 100 MG CAP PO PRN (22:24)
[2019-01-26] MEDS: niMODipine 30 MG CAP PO SCH ×6 (06:25→22:38)
--- NOTE | 2019-01-26 06:25 | PRG ---
DATE OF SERVICE: 01/26/2019 SUBJECTIVE: The patient is a 33-year-old male, status post subarachnoid hemorrhage, right MCA with coiling. The patient had repeat CTA and CT head yesterday, which appear stable with no evidence of vasospasm or hydrocephalus. He is having no overnight events and otherwise doing well. OBJECTIVE: On my exam, the patient is sleepy but awakes easily. He has free active range of motion of all extremities. No focal motor weakness or neurologic deficits are appreciated. PLAN: We will continue to mobilize and work with Physical Therapy as inpatient. I have placed a rehab screen but anticipate rehab sometime this week. Job ID: [id number]
[2019-01-26] MEDS: HYDROcodone/Acetaminophen 5/325 mg Tablet PO PRN ×3 (07:34→16:23)
--- NOTE | 2019-01-26 09:01 | PDOC.FM ---
- Subjective Subjective: Patient reports headache is 3/10 today. Otherwise feeling well, tolerating diet. - Objective Vital Signs & Weight: Vital Signs (12 hours) Temp Pulse Resp BP BP Pulse Ox 01/26/19 08:00 98.8 F 60 16 114/75 98 01/26/19 07:43 98 01/26/19 04:00 98.1 F 50 L 16 119/78 98 01/26/19 00:00 97.9 F 54 L 16 129/67 95 Weight Weight 69.116 kg Most Recent Monitor Data Heart Rate from ECG 59 NIBP 116/73 NIBP BP-Mean 87 Respiration from ECG 14 SpO2 100 I&O: 01/25/19 01/26/19 01/27/19 06:59 06:59 06:59 Intake Total 2400 1230 Output Total 1040 1075 Balance 1360 155 Result Diagrams: 01/19/19 18:55 01/25/19 08:21 Phys Exam - Physical Examination Constitutional: NAD Respiratory: no wheezing, clear to auscultation bilateral Cardiovascular: RRR, no significant murmur Gastrointestinal: soft, positive bowel sounds Musculoskeletal: no edema, pulses present Neurological: non-focal, moves all 4 limbs Psychiatric: normal affect Dx/Plan (1) See aneurysm Code(s): I67.1 - CEREBRAL ANEURYSM, NONRUPTURED Status: Acute (2) Subarachnoid hemorrhage Code(s): I60.9 - NONTRAUMATIC SUBARACHNOID HEMORRHAGE, UNSPECIFIED Status: Acute - Plan Plan: 33 yo gentleman with new onset headache, n/v admitted for a SAH, MCA aneurysm. #Subarachnoid hemorrhage s/p coiling of MCA aneurysm POD #5 -Pt admitted to neurosurgery and we are consulted for medical management -Cardene drip stopped 01/20. Transitioned ICU-> stroke floor 01/23/ On nimodipine, though has been held for BP systolic in 100s. Per neuro, goal BP's 120-180 systolic -Blood pressures stable -CT head/CT angio showed interval decrease in IVH and SAH, coil in place (rt MCA ) -Pain control with norco prn -stool softeners prn Addendum - Attending - Attending Attestation Date/Time: 01/26/19 1050 I personally evaluated the patient and discussed the management with Dr. Danielson. I agree with the History, Examination, Assessment and Plan documented above with any addition or exceptions noted below. The patient continues to have a headache but is concerned about the norco he is taking. We have to avoid nsaids with the bleed. Will try to adjust his meds. F/u with neurosurg. recs.
[2019-01-26] MEDS: Famotidine 20 MG TAB PO SCH ×2 (09:23→22:38)
[2019-01-26] MEDS: Ondansetron PF 4 MG/2 ML Vial IVP PRN (18:11)
[2019-01-26] MEDS: traMADol HCl 50 MG TAB PO PRN (18:12)
[2019-01-26] MEDS: Acetaminophen/Codeine 30-300mg Tablet PO PRN (19:37)
[2019-01-26] MEDS: Docusate 100 MG CAP PO PRN (22:38)
[2019-01-26] MEDS: Polyethylene Glycol 3350 17 GM Packet PO PRN (22:39)
[2019-01-27] MEDS: Acetaminophen/Codeine 30-300mg Tablet PO PRN ×2 (02:32→18:46)
[2019-01-27] MEDS: niMODipine 30 MG CAP PO SCH ×6 (02:33→21:35)
--- NOTE | 2019-01-27 06:37 | PRG ---
DATE OF SERVICE: 01/27/2019 SUBJECTIVE: The patient is doing well this morning. He is still having intermittent headaches, but this is well controlled with p.o. medications. No overnight issues. Case management to look into rehab screen; however, the patient unfortunately does not qualify secondary to his good progress. OBJECTIVE: On exam, this morning, the patient is awake, alert, in no acute distress. He has free active range of motion in all extremities. No focal motor weakness. No focal neurologic deficits are appreciated on my exam. PLAN: We will continue to work on pain control with regard to his headaches and mobilizing appropriately inpatient. We will plan for home at discharge, and I will arrange home health physical therapy on an outpatient basis. I anticipate home by end of the week. Job ID: [id number]
[2019-01-27] MEDS: traMADol HCl 50 MG TAB PO PRN ×2 (06:41→15:06)
[2019-01-27] MEDS: Ondansetron ODT 8 MG TAB SL PRN ×2 (06:42→18:46)
--- NOTE | 2019-01-27 08:30 | PDOC.FM ---
- Subjective Subjective: Patient reports headache is 4/10 today. Otherwise he is eating and drinking well , reports he has not had a BM in >1 week. - Objective Vital Signs & Weight: Vital Signs (12 hours) Temp Pulse Resp BP BP Pulse Ox 01/27/19 08:00 98 F 61 16 121/70 97 01/27/19 04:00 98.9 F 69 18 122/59 L 98 01/26/19 23:57 98.9 F 58 L 18 129/68 98 Weight Weight 69.116 kg Most Recent Monitor Data Heart Rate from ECG 59 NIBP 116/73 NIBP BP-Mean 87 Respiration from ECG 14 SpO2 100 I&O: 01/26/19 01/27/19 01/28/19 06:59 06:59 06:59 Intake Total 1230 500 Output Total 1075 Balance 155 500 Result Diagrams: 01/19/19 18:55 01/25/19 08:21 Phys Exam - Physical Examination Constitutional: NAD Respiratory: no wheezing, clear to auscultation bilateral Cardiovascular: RRR, no significant murmur Gastrointestinal: soft, non-tender, no distention, positive bowel sounds Musculoskeletal: no edema, pulses present Neurological: non-focal, moves all 4 limbs Psychiatric: normal affect Skin: no rash, normal turgor Dx/Plan (1) See aneurysm Code(s): I67.1 - CEREBRAL ANEURYSM, NONRUPTURED Status: Acute (2) Subarachnoid hemorrhage Code(s): I60.9 - NONTRAUMATIC SUBARACHNOID HEMORRHAGE, UNSPECIFIED Status: Acute - Plan Plan: 33 yo admitted for SAH, MCA aneurysm s/p coiling #Subarachnoid hemorrhage s/p coiling of MCA aneurysm POD #7 -Pt admitted to neurosurgery and we are consulted for medical management -Blood pressures stable, goal 120-180 -CT head/CT angio showed interval decrease in IVH and SAH, coil in place (rt MCA ) -Pain control with norco prn. Added tylenol #3 and tramadol as PRN options, as patient states he does not want to take norco unless he has to due to risk of addiction -Docusate LIU BID. Added miralax today, patient states he has not had BM in one week. -Per neuro, plans to discharge by the end of the week once headache pain is well controlled. Addendum - Attending - Attending Attestation Date/Time: 01/27/19 1029 I personally evaluated the patient and discussed the management with Dr. Danielson. I agree with the History, Examination, Assessment and Plan documented above with any addition or exceptions noted below. The patient complains of constipation today. Will give miralax. He has multiple options for pain control. Blood pressures are controlled.
[2019-01-27] MEDS: Docusate 100 MG CAP PO SCH ×2 (09:10→21:35)
[2019-01-27] MEDS: Famotidine 20 MG TAB PO SCH ×2 (09:10→21:36)
[2019-01-27] MEDS: Polyethylene Glycol 3350 17 GM Packet PO SCH (09:10)
[2019-01-27] MEDS: HYDROcodone/Acetaminophen 5/325 mg Tablet PO PRN ×2 (09:23→21:36)
[2019-01-27] MEDS: Scopolamine 1.5 mg/72 hour Patch TOP SCH (17:57)
[2019-01-27] MEDS ORDERED: Milk Of Magnesia 30 ML UDCUP PO PRN (20:37)
[2019-01-28] MEDS: niMODipine 30 MG CAP PO SCH ×4 (04:08→12:55)
[2019-01-28] MEDS: Acetaminophen/Codeine 30-300mg Tablet PO PRN (04:08)
--- NOTE | 2019-01-28 07:31 | PRG ---
DATE OF SERVICE: 01/28/2019 SUBJECTIVE: The patient continues to do well on the stroke unit. He has minimal headaches this morning, only 2/10. No overnight issues or current complaints. We had planned to initially do inpatient rehab. Unfortunately, the patient did not qualify. Had also planned for discharge with home health. Unfortunately, there are no in-networks with his insurance. OBJECTIVE: On exam this morning he is awake, alert, he is nonfocal on my exam. PLAN: We will arrange outpatient physical therapy since there are no in-network home health units with his insurance. We will continue to plan to discharge home later today and I will prescribe scripts for Nimotop which the patient should hold for systolic blood pressure less than 120. I have also prescribed p.r.n. Ferguson as needed for pain. We will plan to follow up with the patient in approximately 4 weeks with repeat imaging at that time. Job ID: [id number]
--- NOTE | 2019-01-28 08:21 | PDOC.FM ---
- Subjective Subjective: Patient states he felt well overnight. NAEO. No bowel movement yet. He is excited about going home later today. - Objective Vital Signs & Weight: Vital Signs (12 hours) Temp Pulse Resp BP Pulse Ox 01/28/19 07:49 98.4 F 62 16 126/70 99 01/28/19 04:00 98.7 F 64 18 130/71 95 01/28/19 00:00 98.7 F 73 18 126/76 95 Weight Weight 68.81 kg Most Recent Monitor Data Heart Rate from ECG 59 NIBP 116/73 NIBP BP-Mean 87 Respiration from ECG 14 SpO2 100 I&O: 01/27/19 01/28/19 01/29/19 06:59 06:59 06:59 Intake Total 980 500 Balance 980 500 Result Diagrams: 01/19/19 18:55 01/25/19 08:21 Phys Exam - Physical Examination Constitutional: NAD Respiratory: no wheezing, clear to auscultation bilateral Cardiovascular: RRR, no significant murmur Gastrointestinal: soft, positive bowel sounds Musculoskeletal: no edema, pulses present Neurological: non-focal Psychiatric: normal affect Skin: normal turgor, cap refill <2 seconds Dx/Plan (1) See aneurysm Code(s): I67.1 - CEREBRAL ANEURYSM, NONRUPTURED Status: Acute (2) Subarachnoid hemorrhage Code(s): I60.9 - NONTRAUMATIC SUBARACHNOID HEMORRHAGE, UNSPECIFIED Status: Acute - Plan Plan: 3 yo admitted for SAH, MCA aneurysm s/p coiling #Subarachnoid hemorrhage s/p coiling of MCA aneurysm POD #8 -Pt admitted to neurosurgery and we are consulted for medical management -Blood pressures stable, goal 120-180 -Nimotop for BP control: hold for blood pressures <120. -CT head/CT angio showed interval decrease in IVH and SAH, coil in place (rt MCA ) -Pain control with norco prn. Added tylenol #3 and tramadol as PRN options, as patient states he does not want to take norco unless he has to due to risk of addiction -Did not qualify for inpt rehab, plan is for outpatient PT -Patient will f/up with Neuro in 4 weeks, with repeat imaging at that time #Constipation -Docusate LIU BID. Miralax LIU. Add mag citrate today. Dispo: Discharge after bowel movement. Addendum - Attending - Attending Attestation Date/Time: 01/28/19 1042 I personally evaluated the patient and discussed the management with Dr. Danielson. I agree with the History, Examination, Assessment and Plan documented above with any addition or exceptions noted below. The patient will get a dose of mag citrate for constipation. Plan on d/c per neurosurgery.
[2019-01-28] MEDS ORDERED: Magnesium Citrate 300 ML BOT PO SCH (08:30)
[2019-01-28] MEDS: Famotidine 20 MG TAB PO SCH (09:22)
[2019-01-28] MEDS: Docusate 100 MG CAP PO SCH (09:22)
[2019-01-28] MEDS: Polyethylene Glycol 3350 17 GM Packet PO SCH (09:23)
--- NOTE | 2019-01-28 09:52 | PRG ---
DATE OF SERVICE: 01/28/2019 The patient is doing quite well. He is alert with modest headache. He is nonfocal. CTA and CT earlier this week were negative for vasospasm or hydrocephalus. We will plan on discharge today, continuing the 3-week course of nimodipine and follow up in [address]. Job ID: [id number]
[2019-01-28] MEDS: HYDROcodone/Acetaminophen 5/325 mg Tablet PO PRN (11:04)
[2019-01-28 11:12] VITALS: BP 136/84; TEMP 97.9
[2019-01-28] MEDS: Ondansetron ODT 8 MG TAB SL PRN (12:57)
--- NOTE | 2019-01-29 08:52 | DIS ---
DATE OF ADMISSION: 01/19/2019 DATE OF DISCHARGE: 01/28/2019 The patient is a 33-year-old male, who was seen in the [facility] on 01/19/2019 and found to have diffuse subarachnoid hemorrhage. CTA was done shortly after that time and the patient was found to have a right MCA bifurcation aneurysm. He was transferred to [facility] for further management and treatment with coiling. The patient underwent coiling by Dr. Torres the following day without complication. He was monitored in the ICU for several days and remained stable. He was then transitioned to the stroke floor and remained stable without evidence of hydrocephalus or vasospasm on followup CT and CTA imaging. He had some headaches, but these did seem to improve with time. He worked with Physical Therapy and was ambulating short distance in the cook. We initially planned for inpatient rehab. However, the patient was doing too well to qualify. We will plan to arrange home health physical therapy as outpatient and followup with the patient in 4 weeks. He has been prescribed Nimotop, which he should take over the next 2 weeks and p.r.n. [place] for pain. I have discussed precautions and followup. Job ID: [id number]
== END 2019-01-28 14:04 | disposition home or self-care (01) | DRG 22 ==
LOC: ERS 16:25 → CCU 18:12 → 2SE 01-23 10:25
PROVIDERS: ADMIT Hospitalist; ATTEND Hospitalist
PROC: 03VG3DZ Restriction of Intracranial Artery with Intraluminal Device, Percutaneous Approach (ICD-10-PCS; principal; 2019-01-19)
PROC: B2151ZZ Fluoroscopy of Left Heart using Low Osmolar Contrast (ICD-10-PCS; 2019-01-19)
DX: I60.11 Nontraumatic subarachnoid hemorrhage from right middle cerebral artery (principal); R29.700 NIHSS score 0; R40.2412 Glasgow coma scale score 13-15, at arrival to emergency department; K59.00 Constipation, unspecified
CPT/HCPCS: 36224; 36415; 37242; 70450; 70496; 80048; 85025; 85610; 85730; 99291; J0131; J0360; J1100; J1644; J2001; J2270; J2405; J2704; J3010; J7050; S0017; S0028

== ENCOUNTER 2019-02-26 09:25 | Outpatient (CLI) | payer OTHER ==
--- NOTE | 2019-02-26 10:07 | CT ---
CT BRAIN NONCONTRAST: DATE: 02/26/2019 HISTORY: 33-year-old male follow-up subarachnoid hemorrhage due to ruptured intracranial aneurysm. COMPARISON: 01/20/2019 FINDINGS: There is no evidence of acute intra-axial or extra-axial hemorrhage. There is no midline shift or any other mass effect. There is no extra-axial fluid collection. The ventricles are normal in size and configuration. The tympanomastoid cavities, and the upper portions of the paranasal sinuses included in these images, are grossly clear. Calvarium is intact. The previously demonstrated subarachnoid hemorrhage, intraventricular hemorrhage in the occipital horns of the lateral ventricles, and diffuse effacement of sulcal markings, have all resolved. There is a new aneurysm coil in the region of the right MCA trifurcation. IMPRESSION: 1. Status post coiling of right middle cerebral artery aneurysm. 2. Otherwise normal.
== END 2019-02-26 09:26 | disposition home or self-care (01) ==
LOC: TBSIIMAG 09:25
PROVIDERS: ATTEND Neurological Surgery
DX: I60.9 Nontraumatic subarachnoid hemorrhage, unspecified (principal); Z86.79 Personal history of other diseases of the circulatory system
CPT/HCPCS: 70450

== ENCOUNTER 2019-11-04 07:59 | Outpatient (CLI) | payer OTHER ==
--- NOTE | 2019-11-04 09:27 | CT ---
CT ANGIOGRAM OF BRAIN WITH AND WITHOUT CONTRAST: DATE: 11/04/2019 HISTORY: 34-year-old male with history of subarachnoid hemorrhage from ruptured intracranial aneurysm. Status post coiling of aneurysm. Follow-up. COMPARISON: 01/25/2019 TECHNIQUE: Noncontrast brain CT performed. Iodinated IV contrast injected. Bolus chasing technique scan performed through the head. Coronal and sagittal 3-D MIP reconstructions. FINDINGS: The noncontrast brain CT demonstrates no subarachnoid, subdural, epidural, or intra-axial hemorrhage. Calvarium is intact. Ventricles are normal in size and configuration. No mass effect, midline shift, extra-axial fluid collection. No abnormal intra-axial hypodensities. Paranasal sinuses and samantha ateral tympanomastoid cavities are clear. Again noted is the aneurysm coiling at the region of the trifurcation of the right middle cerebral ar jose eduardo. Causes streak artifact, partially obscuring adjacent areas. No obvious residual aneurysm is identified, but catheter angiography which would not have such streak artifact, would be more definit manuel in ruling out any residual aneurysmal patent lumen. The bilateral middle, anterior, vertebral, posterior cerebral, superior cerebellar, posterior-inferior cerebellar, and anterior-inferior cerebel lar, arteries, appear normal. Basilar artery appears normal. No aneurysm is identified. There is an anterior communicating artery. There is a left posterior communicating artery. There has been no inte rval change overall. Dural venous sinuses are patent. IMPRESSION: 1. Status post aneurysm coiling at trifurcation of right middle cerebral artery. 2. Otherwise normal.
[2019-11-04] MEDS ORDERED: Iopamidol 370 76% 100 ML VIAL ONE (10:11)
== END 2019-11-04 08:00 | disposition home or self-care (01) ==
LOC: CT 07:59
PROVIDERS: ATTEND Neurological Surgery
DX: I60.9 Nontraumatic subarachnoid hemorrhage, unspecified (principal); I67.1 Cerebral aneurysm, nonruptured
CPT/HCPCS: 70496; Q9967